=== PATIENT | male | born 1955 | race Caucasian/White ===

== ENCOUNTER 2017-06-20 19:37 | Observation (INO) ==
[2017-06-20] MEDS ORDERED: ALUM/MAG/SIMETH/LIDO VISC 1:1 30 ML BOTTLE PO STA (20:10)
[2017-06-20] MEDS ORDERED: NITROGLYCERIN 2% OINT 1 INCH/GM PACK TOP STA (20:10)
[2017-06-20] MEDS ORDERED: MORPHINE 4 MG/1 ML VIAL IV STA (20:10)
[2017-06-20] MEDS ORDERED: ASPIRIN 325 MG TABLET PO STA (20:10)
[2017-06-20] MEDS ORDERED: ONDANSETRON 4 MG/2 ML VIAL IV STA (20:10)
[2017-06-20] MEDS ORDERED: ONDANSETRON 4 MG/2 ML VIAL ONE (20:24)
[2017-06-20] MEDS ORDERED: MORPHINE 4 MG/1 ML VIAL ONE (20:24)
[2017-06-20] MEDS ORDERED: NITROGLYCERIN 2% OINT 1 INCH/GM PACK TOP ONE (20:24)
[2017-06-20] MEDS ORDERED: ASPIRIN 325 MG TABLET ONE (20:24)
[2017-06-20] MEDS ORDERED: ALUM/MAG/SIMETH/LIDO VISC 1:1 30 ML BOTTLE PO ONE (20:25)
[2017-06-20 20:31] LABS: Basophils # 0.1 10*3/uL (0.0-0.2); Basophils % 0.6 % (0.0-0.8); Eosinophils # 0.3 10*3/uL (0.0-0.87); Hematocrit 41.5 VOL% (42.0-52.0); Hemoglobin 14.4 GM/DL (14.0-18.0); Immature Granulocytes % 0.6 %; Lymphocytes # 1.6 10*3/uL (1.4-4.0); Lymphocytes % 10.5 % (21.2-54.2); Mean Corpuscular HGB Conc 34.7 GM/DL (32-36); Mean Corpuscular Hemoglobin 33 PG (27-34); Mean Corpuscular Volume 94.1 FL (87-102); Mean Platelet Volume 9.8 FL (9.6-12.0); Monocytes # 1.5 10*3/uL (0.11-0.8); Monocytes % 9.5 % (1.7-12.7); Neutrophils % 76.8 % (38.7-73.9); Platelet Count 239 T/CUMM (130-400); Red Blood Count 4.41 MC/CUMM (3.8-5.5); Red Cell Distribution Width 12.4 % (9.3-17.3); White Blood Count 15.6 T/CUMM (4-12)
[2017-06-20 20:34] LABS: Albumin 3.9 G/DL (3.4-5.0); Bilirubin,Total 0.4 MG/DL (0.2-1.0); Osmolality,Calculated 282.4 MOS/KG (273-304); Potassium 3.3 MMOL/L (3.5-5.1)
[2017-06-20 21:25] LABS: PT Patient Result 10.1 SECS
[2017-06-20] MEDS ORDERED: ONDANSETRON 4 MG/2 ML VIAL IV PRN (21:43)
[2017-06-20] MEDS ORDERED: POTASSIUM CHLORIDE 20 MEQ TABLET PO PRN (21:43)
[2017-06-20] MEDS ORDERED: NITROGLYCERIN SL 0.4 MG TABLET SL ONE (23:44)
[2017-06-20] MEDS ORDERED: ENOXAPARIN 100 MG/ML SYRINGE SUBCUT ONE (23:46)
[2017-06-20] MEDS ORDERED: NITROGLYCERIN SL 0.4 MG TABLET SL PRN (23:48)
[2017-06-21] MEDS ORDERED: ENOXAPARIN 100 MG/ML SYRINGE SUBCUT ONE
[2017-06-21] MEDS ORDERED: CLORAZEPATE 7.5 MG TABLET PO ONE ×2 (00:30→05:00)
[2017-06-21] MEDS ORDERED: POTASSIUM CHLORIDE 20 MEQ TABLET PO PRN (01:06)
[2017-06-21] MEDS ORDERED: ONDANSETRON 4 MG/2 ML VIAL IV ONE (01:38)
[2017-06-21] MEDS ORDERED: MEPERIDINE 50 MG/1 ML VIAL IV ONE (01:38)
[2017-06-21] MEDS ORDERED: MEPERIDINE 50 MG/1 ML VIAL ONE (02:02)
[2017-06-21 02:40] LABS: Calcium 8.7 MG/DL (8.5-10.1); Osmolality,Calculated 278.8 MOS/KG (273-304); Potassium 4.3 MMOL/L (3.5-5.1); VLDL CHOLESTEROL 9.8 MG/DL
[2017-06-21] MEDS: NITROGLYCERIN 2% OINT 1 INCH/GM PACK TOP SCH ×4 (03:11→22:43)
[2017-06-21] MEDS ORDERED: PANTOPRAZOLE 40 MG VIAL IV ONE (09:41)
[2017-06-21] MEDS ORDERED: ALBUTEROL/IPRATROPIUM 3 ML NEB RESP TX PRN (09:45)
[2017-06-21] MEDS ORDERED: SERTRALINE 50 MG TABLET PO ONE (11:00)
[2017-06-21] MEDS: ENOXAPARIN 40 MG/0.4 ML SYRINGE SUBCUT SCH (11:00)
[2017-06-21] MEDS: COLCHICINE 0.6 MG TABLET PO SCH ×2 (11:53→20:35)
[2017-06-21] MEDS: IBUPROFEN 800 MG TABLET PO SCH ×3 (11:54→20:36)
[2017-06-21] MEDS: ASPIRIN EC 325 MG TABLET PO SCH (11:54)
[2017-06-21] MEDS ORDERED: AZITHROMYCIN INJ 500 MG in SODIUM CHLORIDE 0.9% 250 ML IV SCH (15:00)
[2017-06-21] MEDS: PANTOPRAZOLE 20 MG TABLET PO SCH (20:35)
[2017-06-22] MEDS: NITROGLYCERIN 2% OINT 1 INCH/GM PACK TOP SCH ×2 (04:14→08:34)
[2017-06-22 05:17] LABS: Apearance,Urine CLEAR (Clear); Bilirubin,Urine Negative (Negative); Blood, Urine Negative (Negative); Glucose,Urine (UA) Negative (Negative); Ketones,Urine Negative (Negative); Mucus,Urine Occasional /LPF (Occasional); Nitrite,Urine Negative (Negative); Protein,Urine 30 MG/DL; RBC,Urine 5 /HPF (0-4); Squamous Epithelial Cell,Urine Occasional /HPF (0-10); Urine Color Yellow (Yellow); Urine Specific Gravity 1.027 (1.001-1.035); WBC,Urine 1 /HPF (0-6)
[2017-06-22 06:27] LABS: Basophils # 0.1 10*3/uL (0.0-0.2); Basophils % 0.9 % (0.0-0.8); Eosinophils # 0.2 10*3/uL (0.0-0.87); Eosinophils % 2.4 % (0.00-10.9); Hematocrit 39.5 VOL% (42.0-52.0); Immature Granulocytes % 0.3 %; Immature Granulocytes Absolute 0.02 #; Lymphocytes # 1.4 10*3/uL (1.4-4.0); Lymphocytes % 17.7 % (21.2-54.2); Mean Corpuscular HGB Conc 35.4 GM/DL (32-36); Mean Corpuscular Hemoglobin 33 PG (27-34); Mean Corpuscular Volume 92.5 FL (87-102); Mean Platelet Volume 10.2 FL (9.6-12.0); Monocytes # 1.6 10*3/uL (0.11-0.8); Monocytes % 19.7 % (1.7-12.7); Neutrophils # 4.7 10*3/uL (1.4-7.4); Platelet Count 220 T/CUMM (130-400); Red Blood Count 4.27 MC/CUMM (3.8-5.5); Red Cell Distribution Width 12.9 % (9.3-17.3)
[2017-06-22 06:48] LABS: Lymphocytes 17 % (20-55); Microcytosis Slight; Segmented Neutrophils 64 % (50-85); Total Cells Counted 100
[2017-06-22 06:49] LABS: Platelet Estimate Normal
[2017-06-22 07:04] LABS: Calcium 8.4 MG/DL (8.5-10.1); Osmolality,Calculated 281.3 MOS/KG (273-304); Potassium 4.3 MMOL/L (3.5-5.1)
[2017-06-22] MEDS: COLCHICINE 0.6 MG TABLET PO SCH (08:33)
[2017-06-22] MEDS: ASPIRIN EC 325 MG TABLET PO SCH (08:34)
[2017-06-22] MEDS: IBUPROFEN 800 MG TABLET PO SCH (08:34)
[2017-06-22] MEDS: PANTOPRAZOLE 20 MG TABLET PO SCH (08:34)
[2017-06-22] MEDS: ENOXAPARIN 40 MG/0.4 ML SYRINGE SUBCUT SCH (08:36)
[2017-06-22 10:08] VITALS: BP 134/85
== END 2017-06-22 10:48 | disposition home or self-care (01) ==
LOC: N.ED 19:37 → N.EDINP 19:37 → N.TELES 22:24 → N.CC 06-21 02:03
PROVIDERS: ADMIT Family Medicine; ATTEND Family Medicine